=== PATIENT | female | born 1960 | race Caucasian/White ===

== ENCOUNTER 2021-11-20 06:13 | Day surgery (SDC) | payer OTHER ==
[~2021-11-20] VITALS: Ht 157.5 cm; Wt 54.5 kg
[2021-11-20] MEDS ORDERED: ALBUTEROL SULFATE 2.5 MG/0.5 ML NEB SOLUTION NEB ONE (06:14)
[2021-11-20] MEDS ORDERED: LIDOCAINE 2% 30 ML JELLY TP ONE (06:14)
[2021-11-20] MEDS ORDERED: BENZOCAINE 20% 50 MCG/SPRAY 57 GM TP ONE (06:14)
[2021-11-20] MEDS ORDERED: SODIUM CHLORIDE 0.9% 500 ML IV ONE (06:30)
[2021-11-20 06:43] LABS: COVID AG,FIA SOURCE NASOPHARYNGEAL
[2021-11-20] MEDS ORDERED: MIDAZOLAM HCL 2 MG/2 ML VIAL ONE (08:00)
[2021-11-20] MEDS ORDERED: FentaNYL CITRATE PF 100 MCG/2 ML VIAL ONE (08:01)
[2021-11-20] MEDS ORDERED: SODIUM CHLORIDE 0.9% 1,000 ML IV ONE (08:15)
[2021-11-20] MEDS ORDERED: MONT-35 PO (08:40)
[2021-11-20] MEDS ORDERED: ESCI-8 PO (08:41)
[2021-11-20] MEDS ORDERED: TRAZ150T80 PO (08:42)
[2021-11-20] MEDS ORDERED: BUDE10.26 IH (08:42)
[2021-11-20] MEDS ORDERED: PANT-31 PO (08:44)
[2021-11-20] MEDS ORDERED: FAMO20 PO (08:45)
[2021-11-20] MEDS ORDERED: MethylPREDNISolone SOD SUCC 125 MG/2 ML VIAL IVP ONE (09:00)
[2021-11-20] MEDS ORDERED: MethylPREDNISolone SOD SUCC 125 MG/2 ML VIAL ONE (09:00)
[2021-11-20] MEDS ORDERED: OXYGEN THERAPY IH SCH (20:00)
== END 2021-11-20 10:30 | disposition home or self-care (01) ==
LOC: SURGERY 06:13
PROVIDERS: ATTEND Internal Medicine Critical Care Medicine
DX: J38.4 Edema of larynx (principal); B37.0 Candidal stomatitis; Z98.890 Other specified postprocedural states; Z72.89 Other problems related to lifestyle; Z87.891 Personal history of nicotine dependence; Z79.899 Other long term (current) drug therapy
CPT/HCPCS: 31623; 31624; 71045; 71250; 87015; 87070; 87101; 87206; 87220; 87426; 88184; 88185; C9803; J2250; J2930; J3010; 88112; 88312; J7613